=== PATIENT | female | born 1965 | race Caucasian/White ===

== ENCOUNTER → 2021-04-27 | Day surgery (SDC) | payer BC, OTHER ==
[~2021-04-27] MED LIST: BREZTRI AEROS10.7 GM INH; ESTRADIOL1 MG TOP; MULTI-VITAMIN1 EACH PO; OMEGA-31000 MG PO; VITAMIN C1000 MG PO; VITAMIN D310 MCG PO; ZINC PO
== END | disposition home or self-care (01) ==
LOC: OR 12:12
PROVIDERS: ATTEND Internal Medicine Gastroenterology
DX: K29.60 Other gastritis without bleeding (principal); K44.9 Diaphragmatic hernia without obstruction or gangrene; K29.30 Chronic superficial gastritis without bleeding; R13.10 Dysphagia, unspecified; K21.9 Gastro-esophageal reflux disease without esophagitis; Z86.16 Personal history of COVID-19; E66.3 Overweight; Z68.27 Body mass index [BMI] 27.0-27.9, adult; Z88.5 Allergy status to narcotic agent; Z87.891 Personal history of nicotine dependence; J45.909 Unspecified asthma, uncomplicated; Z01.810 Encounter for preprocedural cardiovascular examination; Z01.812 Encounter for preprocedural laboratory examination; Z20.822 Contact with and (suspected) exposure to COVID-19
CPT/HCPCS: 43239; 93005; U0002